=== PATIENT | male | born 1975 ===

== ENCOUNTER 2017-11-04 13:13 | Inpatient (IN) | payer OTHER ==
[~2017-11-04] VITALS: Ht 172.7 cm; Wt 81.3 kg
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
--- NOTE | 2017-11-04 16:24 | RADIOLOGY REPORT ---
EXAMINATION: XR WRIST, LEFT CLINICAL INFORMATION: Pain after hand, COMPARISON: None TECHNIQUE: 4 views total PA, lateral, and oblique views of the left wrist. In addition, a navicular view was obtained. FINDINGS: The bones and soft tissues are normal. No fracture. Alignment is anatomic with normal joint spaces. No erosions or abnormal soft tissue calcifications. IMPRESSION: Normal left wrist.
--- NOTE | 2017-11-04 16:25 | RADIOLOGY REPORT ---
EXAMINATION: XR WRIST, RIGHT CLINICAL INFORMATION: Pain status post handcuffs COMPARISON: None TECHNIQUE: 4 views total were obtained. PA, lateral, and oblique views of the right wrist as well as a navicular view. FINDINGS: The bones and soft tissues are normal. No fracture. Alignment is anatomic with normal joint spaces. No erosions or abnormal soft tissue calcifications. IMPRESSION: Normal right wrist.
[2017-11-04 16:37] LABS: ABSOLUTE BASOPHIL COUNT 0 /CUMM (0.0-0.2); ABSOLUTE EOSINOPHIL COUNT 0.1 /CUMM (0.0-0.7); ABSOLUTE GRANULOCYTE CT 5.4 /CUMM (1.4-6.5); ABSOLUTE LYMPH COUNT 1.2 /CUMM (1.2-3.4); ABSOLUTE MONOCYTE COUNT 0.6 /CUMM (0.10-0.60); BASOPHIL % 0.5 % (0.0-2.0); EOSINOPHIL % 0.7 % (0-5); GRANULOCYTE % 74.1 % (42.2-75.2); HEMATOCRIT 41.1 % (42-52); MEAN CORPUSCULAR HGB 28.6 PG (27.0-31.0); MEAN CORPUSCULAR HGB CONC 33.3 G/DL (33.0-37.0); MEAN PLATELET VOLUME 8.4 FL (7.4-10.4); PLATELET COUNT 251 /CUMM (130-400); RBC DISTRIBUTION WIDTH 14.4 % (11.5-14.5); RED BLOOD CELL CT 4.78 /CUMM (4.70-6.10); WHITE BLOOD CELL COUNT 7.3 /CUMM (4.8-10.8)
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
[2017-11-05 16:08] VITALS: BP 130/85
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
[2017-11-05 20:01] VITALS: BP 132/77
[2017-11-06 07:49] VITALS: BP 117/56
[2017-11-06 12:06] VITALS: BP 143/76
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
[2017-11-06 15:47] VITALS: BP 140/77
[2017-11-06 20:03] VITALS: BP 126/82
--- NOTE | 2017-11-07 01:26 | Event Note ---
Event Note Event Note: I was notifed by security that this patient's insisted on talking to a physician about patient's headache and need for MRI brain. This happened while I was dealing with a Rad[facility] transfer and ICU admits. I requested security to transfer the call to auto bumper mechanic and psychiatrist. I spoke with RN about the patient at that point. She stated he has no headache. He has left wrist pain - 3 /10 and he was not complaining, but was insisting on imaging. I asked RN to speak with patient's and explain that physician will evaluate patient later and decide on need for imaging. Plus we do not have MRI over the weekend, so if necessary we will get a CT scan in AM. I evaluated patient at 12.30 AM, he was sound asleep. He woke up and stated he has no headache, his vision is clear and he feels well. He offered no complaints. Vitals are stable. I suggested we re-evaluate patient in AM and decide on imaging if remains persistent. 's name is Yaya Choi and her number is [phone]. I did not give her a call as it was too late. We will re-evaluate in AM and decide need for imaging based on symptoms.
[2017-11-07 07:34] VITALS: BP 133/65
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
[2017-11-07 12:30] VITALS: BP 131/70
[2017-11-07 15:42] VITALS: BP 135/81
[2017-11-07 19:41] VITALS: BP 147/81
[2017-11-08 08:39] VITALS: BP 115/65
--- NOTE | 2017-11-08 09:14 | CP SOUTH PROGRESS NOTE PSYCH ---
Psych (Inpt) Progress Note Progress Note Vital Signs Date Time Temp Pulse B/P B/P Pulse O2 FiO2 11/08 0839 97.5 67 115/65 11/07 1941 96.7 65 147/81 11/07 1542 69 135/81 11/07 1230 60 131/70 MSE: The patient was alert and oriented to time, place, and person. He was well related today. He was not irritable or hostile. He showed good eye contact. His speech was normal, not pressured, and not slurred. He reported that his mood is starting to improve. He denied feeling hopeless or worthless and he denied wishing . He denied thoughts of suicide today. He denied any violent intentions or urges or thoughts and denied homicidal intentions or urges or thoughts. He was coherent, there was no thought disorder. There were no delusions during the interview. He denied hallucinations and did not seem to be experiencing any internal preoccupation or internal stimuli. Assessment: A 42 y/o man with suicidal thoughts with plan, admitted; guarded, angry and frustrated with being admitted here. Less angry and less intense compared to yesterday. Provided education about indications for brain imaging in addition to discussing medications. Did not focus on transfer to another hospital. Plan: CT Head Increase Seroquel to 300 mg at bedtime Reduce PRN Ativan to 0.5 mg Q 6 Hours PRN Increase PRN Gabapentin to 600 mg Q 6 hours
[2017-11-08 12:17] VITALS: BP 127/54
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
--- NOTE | 2017-11-08 14:42 | CT SCAN REPORT ---
EXAMINATION: CT HEAD WITHOUT CONTRAST CLINICAL INFORMATION: Concussion. Headaches. COMPARISON: None TECHNIQUE: Contiguous axial imaging was performed from the skull base to vertex without intravenous administration of contrast. DLP: 617.8 mGy-cm FINDINGS: There is no evidence of acute intracranial hemorrhage or territorial infarction. No abnormal mass effect or midline shift is seen. Ellis to white matter differentiation is well preserved. No extra-axial fluid collections are identified. The ventricles are normal in size. There is no abnormal attenuation within the brain parenchyma. The osseous structures are normal. The mastoid air cells and visualized portions of the paranasal sinuses are well aerated. There is nonspecific nodular soft tissue thickening in the subdermal and subcutaneous scalp soft tissues, mostly in the parietal-occipital regions. No bony erosive changes are seen. IMPRESSION: No acute intracranial pathology. Nonspecific diffuse nodular soft tissue thickening in the parietal and occipital scalp. Correlate with physical exam findings.
[2017-11-08 16:15] VITALS: BP 133/68
--- NOTE | 2017-11-08 16:59 | SOCIAL WORKER PROG NOTE PSYCH ---
Social Work Progress Note Progress Note The services requested require additional review. You will be contacted regarding the status of this request if further information is needed. An authorization decision will be made within the required timeframes and details of that decision may be found under the member's authorization history. Member Name Member ID Member Subscriber Name Subscriber ID TONIO CAIN [id number] TONIO CAIN [id number] Pended Authorization # Client Authorization # Type of Request [id number] CONCURRENT Date of Admission/ Start of Services Requested From Submission Date 11/05/2017 11/08/2017 11/08/2017 Level of Service Type of Service Level of Care Type of Care INPATIENT/HLOC [facility] - [facility]patient [facility] Reason Code P77 Provider Name & Address Provider ID Provider Alternate ID NPI # for Authorization MAGUI LAM [id number] [facility] [id number]
[2017-11-08 19:54] VITALS: BP 132/68
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
[2017-11-09 08:40] VITALS: BP 129/67
--- NOTE | 2017-11-09 11:22 | CP SOUTH PROGRESS NOTE PSYCH ---
Psych (Inpt) Progress Note Progress Note The treatment team reviewed the patient's the progress, treatment plan and aftercare plans and updated that. Treatment team included social work, nursing staff, therapy staff, and psychiatrist. Vital Signs Date Time Temp Pulse B/P B/P Pulse O2 FiO2 11/09 0840 96.4 71 129/67 11/08 1954 96.9 71 132/68 11/08 1615 65 133/68 11/08 1217 67 127/54 MSE: The patient was tearful most of the interview as well as in the family meeting. Alert and oriented to time, place, and person. He showed good eye contact. His speech was normal, not pressured, and not slurred. He reported that his mood is starting to improve. He denied feeling hopeless or worthless and he denied wishing . He denied thoughts of suicide today. He denied any violent intentions or urges or thoughts and denied homicidal intentions or urges or thoughts. He was coherent, there was no thought disorder. There were no delusions during the interview. He denied hallucinations and did not seem to be experiencing any internal preoccupation or internal stimuli. Assessment: A 42-year-old Black male who was admitted to the inpatient psychiatric unit at [facility] on 11/05/2017 with suicidal thoughts with plan, He has shown significant improvement over the relatively short period of time that he has been here and he did sign himself voluntarily and yesterday. He was initially admitted to the physician emergency certificate. The family meeting went well today he was perceived pretty tearful and overwhelmed but the reported that he feels that he wants to get out and start working on helping his and kids he does have an intake at [facility] [place] intensive outpatient program Plan: D/C PRN Gabapentin Use PRN Ativan for anxiety and sleep continue Seroquel 300 mg at bedtime Increase Prozac to 60 mg daily
[2017-11-09 12:00] VITALS: BP 121/58
[2017-11-09 16:11] VITALS: BP 130/70
[2017-11-09 19:51] VITALS: BP 120/64
[2017-11-10 07:54] VITALS: BP 124/57
[2017-11-10 12:23] VITALS: BP 140/68
--- NOTE | 2017-11-10 13:43 | SOCIAL WORKER PROG NOTE PSYCH ---
Social Work Progress Note Progress Note Jasson slept alot this morning. Met with him after lunch. He said he was in his room this morning taking space for himself. He is starting to feel a little overwhelmed by some of the other patients. He told me he thinks he will feel ready to d/c tomorrow. Affect is still flat/ constricted. Soft speech. He said he feels less violent/ aggressive, but waiting to see how the antidepressant helps him. I told him that can take weeks to feel the effects. He is eager to get back to working on school and looking for work so he can provide for his family. Denies any SI. Talked to his and told her he will come home tomorrow. She will most likely pick him up. Time to be determined. He will call her back to discuss. He feels he is stabilizing and getting ready to face the world again. Will need a letter for school.
--- NOTE | 2017-11-10 13:56 | CP SOUTH PROGRESS NOTE PSYCH ---
Psych (Inpt) Progress Note Progress Note The treatment team reviewed the patient's the progress, treatment plan and aftercare plans and updated that. Treatment team included social work, nursing staff, therapy staff, and psychiatrist. Vital Signs Date Time Temp Pulse B/P Pulse O2 FiO2 11/10 1223 72 140/68 11/10 0754 96.2 67 124/57 11/09 1951 96.8 62 120/64 11/09 1611 71 130/70 MSE: The patient was in bed most of the day. He said he did feel like dealing with people today. Alert and oriented to time, place, and person. He seemed down and withdrawn with reduced speech. He reported that he is leaving tomorrow around noon. He denied feeling hopeless or worthless and he denied wishing . He denied thoughts of suicide today. He denied any violent intentions or urges or thoughts and denied homicidal intentions or urges or thoughts. He was coherent, there was no thought disorder. There were no delusions during the interview. He denied hallucinations and did not seem to be experiencing any internal preoccupation or internal stimuli. Assessment: A 42-year-old Black male who was admitted to the inpatient psychiatric unit at [facility] on 11/05/2017 with suicidal thoughts. He has shown some improvement over the the past few days. The family meeting went well yesterday. Plan: REduce PRN Ativan for anxiety and sleep and combine with Gabapentin continue Seroquel 300 mg at bedtime Continue Prozac 60 mg daily Plan: D/C PRN Gabapentin Use PRN Ativan for anxiety and sleep continue Seroquel 300 mg at bedtime Increase Prozac to 60 mg daily
[2017-11-10 15:57] VITALS: BP 109/68
[2017-11-10 19:29] VITALS: BP 140/59
[2017-11-11 07:45] VITALS: BP 117/62
[2017-11-11] MEDS ORDERED: GABAPENTIN400 M2 PO (07:58)
[2017-11-11] MEDS ORDERED: QUETIAPINE FUM100 M1 PO (07:58)
[2017-11-11] MEDS ORDERED: ONE DAILY MULT1 EAC2 PO (07:58)
[2017-11-11] MEDS ORDERED: NICORELIEF2 MG PO (07:58)
[2017-11-11] MEDS ORDERED: VITAMIN D3400 UNI1 PO (07:58)
[2017-11-11] MEDS ORDERED: FLUOXETINE HCL20 M2 PO (07:58)
--- NOTE | 2017-11-11 07:59 | Patient Discharge Instructions ---
Psych Discharge Inst General Discharge Information Reason for Admission: thoughts of suicide Psy Discharge Primary Diag+ Unspecified Bipolar Psy Discharge Secondary Diag+ Cannabis Use Disorder Summary Tests/Major Procedures There were no significant abnormalities in the patient's laboratory testing. Studies Pending at DC: The patient's hep C and hep B profiles are pending as well as the hemoglobin A1c Patient Instructions Contact Information Your Psychiatrist on [facility] was Owen Mena MD * If you are experiencing an emergency related to this hospitalization, please call [phone] to contact the treating psychiatrist or the psychiatrist-on- call. * To Request a copy of your medical records, please contact the Medical Records Department at [phone]. * To request results of studies pending at the time of discharge, please call [phone]. * Continue your Medications until directed to stop by your Healthcare provider. General Medication Information Please continue to take your new medications and your continued home medications , unless otherwise indicated on your discharge medication list, or unless directed by your MD or CONFIGURATION MANAGEMENT ADVISOR to stop them. Special Instructions Diet Regular Activity Normal - Tobacco Use Treatment Offered Post DC Medications Offered: Script Given-See Med List Post DC Tobacco Treatment Plan: Other Tobacco Tx Pgm - EtOH/Drug Use D/O Treatment Offered Post DC Medications Offered: Med Not Indicated for D/O Post DC EtOH/SubAbuse TX Plan: Other SubAbuse/Dual Pgm Metabolic Screening Patient on a neuroleptic(s) . Enter below results for Hemoglobin A1C, and lipid panel if obtained during the last 365 days. BMI: 27.200 Blood Pressure: 117/62 Laboratory Results From [facility] (If applicable): Lab Cholesterol 199 MG/DL 11/04/17 1604 Cholesterol/HDL Ratio 3 % 11/04/17 1604 HDL Cholesterol 59 mg/dL 11/04/17 1604 Hemoglobin A1c Pending 11/11/17 0642 LDL Cholesterol, Calc 130 mg/dL H 11/04/17 1604 TSH &T3 &Free T4 Intrp 1.350 uIU/mL 11/04/17 1604 Triglycerides 53 mg/dL 11/04/17 1604 Advance Directives Does the Patient have Medical Advance Directives No/Refused further info Does Pt have Psychiatric Advance Directives? No/Refused further info Does Patient have a Designated Surrogate Decision Maker: Yes Information About Psychiatric Advance Directives Provided? Yes Discharge Plan Post Hospital Treatment Plan: [facility] Dual Diag Program
--- NOTE | 2017-11-11 08:23 | CP SOUTH PROGRESS NOTE PSYCH ---
Psych (Inpt) Progress Note Progress Note The treatment team reviewed the patient's the progress, treatment plan and aftercare plans and updated that. Treatment team included social work, nursing staff, therapy staff, and psychiatrist. Vital Signs Vital Signs Date Time Temp Pulse B/P B/P Pulse O2 FiO2 11/11 0745 96.7 79 117/62 11/10 1929 97.1 75 140/59 05 1557 75 109/68 11/10 1223 72 140/68 Mental status examination (07:50 hours): The patient was up and about before 8 AM, alert and oriented to time, place and person. Is still feeling depressed and anxious, but reported that's is feeling much better than the past couple days. Affect seemed down and withdrawn with reduced speech, but he reported that he is looking forward to discharge and taking care of what he needs to be taking care of on the outside. He reports that he intends to continue treatment with intensive outpatient program in [place]. He reported that his is picking him up around 2:00 this afternoon He denied feeling hopeless or worthless and he denied wishing . He denied thoughts of suicide today. He denied any violent intentions or urges or thoughts and denied homicidal intentions or urges or thoughts. He was coherent, there was no thought disorder. There were no delusions during the interview. He denied hallucinations and did not seem to be experiencing any internal preoccupation or internal stimuli. Assessment: A 42-year-old Black male who was admitted to the inpatient psychiatric unit at [facility] on 11/05/2017 with suicidal thoughts. Jasson showed improvement over the the past few days, no longer feeling hopeless, no longer thinking of suicide. Plan Update: D/C Home with F/U with [facility]
--- NOTE | 2017-11-11 08:25 | DISCHARGE SUMMARY REPORT-PSYCH ---
Visit Information Visit Dates/Diagnosis' Admission Date: 11/05/17 Discharge Date: 11/11/17 Reason for Admission: thoughts of suicide Psy Discharge Primary Diag: Unspecified Bipolar Psy Discharge Secondary Diag: Cannabis Use Disorder Hospital Course Significant Lab Findings: Laboratory Results From [facility] (If applicable): Lab Cholesterol 199 MG/DL 11/04/17 1604 Cholesterol/HDL Ratio 3 % 11/04/17 1604 HDL Cholesterol 59 mg/dL 11/04/17 1604 Hemoglobin A1c 5.5 % 11/11/17 0642 LDL Cholesterol, Calc 130 mg/dL H 11/04/17 1604 Triglycerides 53 mg/dL 11/04/17 1604 Lab Hct 41.1 % L 11/04/17 1613 Hgb 13.7 G/DL L 11/04/17 1613 Course Complications: The patient did not have any complications when he was on the inpatient psychiatric unit. Consultations: The patient had a history and physical examination while he was on the inpatient psychiatric unit. Please refer to the patient's electronic health record for details on the H&P. Allergies: Coded Allergies: No Known Allergies (11/04/17) Hospital Course/TX Response: 11/05/2017: Impression and Plan: 42-year-old black male who was admitted on a physician emergency certificate because he was contemplating suicide DSM 5 Diagnosis(es): Unspecified bipolar disorder Cannabis use disorder Treatment Plan: Inpatient psychiatric care with safety checks every 15 minutes Continue Prozac 40 mg every morning and Continue Seroquel 200 mg at bedtime Vitamin D 800 units daily Multivitamins once daily, As needed doses of Ativan for insomnia and as needed doses for anxiety and irritability/agitation 11/06/2017: Plan: continue current plan of care. Explained to him how the admission process works. He requested to be transferred to another hospital, explained to him that if he finds an accepting physician he is welcome to discuss further, that can ask us to provide # for another hospital, his will help him he stated. 11/07/2017: There were no changes made in the treatment plan or medications. CT Head Increase Seroquel to 300 mg at bedtime Reduce PRN Ativan to 0.5 mg Q 6 Hours PRN Increase PRN Gabapentin to 600 mg Q 6 hours 11/09/2017: D/C PRN Gabapentin Use PRN Ativan for anxiety and sleep continue Seroquel 300 mg at bedtime Increase Prozac to 60 mg daily 11/10/2017: Plan: Reduce PRN Ativan for anxiety and sleep and combine with Gabapentin continue Seroquel 300 mg at bedtime Continue Prozac 60 mg daily 11/11/2017: Mental status examination (07:50 AM): The patient was up and about before 8 AM, alert and oriented to time, place and person. Is still feeling depressed and anxious, but reported that's is feeling much better than the past couple days. Affect seemed down and withdrawn with reduced speech, but he reported that he is looking forward to discharge and taking care of what he needs to be taking care of on the outside. He reports that he intends to continue treatment with intensive outpatient program in [place]. He reported that his is picking him up around 2:00 this afternoon. He denied feeling hopeless or worthless and he denied wishing . He denied thoughts of suicide today. He denied any violent intentions or urges or thoughts and denied homicidal intentions or urges or thoughts. He was coherent, there was no thought disorder. There were no delusions during the interview. He denied hallucinations and did not seem to be experiencing any internal preoccupation or internal stimuli. Assessment: A 42-year-old Black male who was admitted to the inpatient psychiatric unit at [facility] on 11/05/2017 with suicidal thoughts. Jasson showed improvement over the the past few days, no longer feeling hopeless, no longer thinking of suicide. Plan Update: D/C Home with F/U with [facility] IOP Discharge HBIPS - Tobacco Use Treatment Offered Post DC Medications Offered: Script Given-See Med List Post DC Tobacco Treatment Plan: Other Tobacco Tx Pgm - EtOH/Drug Use D/O Treatment Offered Post DC Medications Offered: Med Not Indicated for D/O Post DC EtOH/SubAbuse [place] Plan: Other SubAbuse/Dual Pgm Metabolic Screening - Screen if on a Neuroleptic Medication - Metabolic screening should include: - Blood Pressure, BMI, Glucose or Hgb A1c, & a - Lipid profile from within the past 365 days. Metabolic Screening Patient on a neuroleptic(s) . Enter below results for Hemoglobin A1C, and lipid panel if obtained during the last 365 days. BMI: 27.200 Blood Pressure: 117/62 Laboratory Results From [facility] (If applicable): Lab Cholesterol 199 MG/DL 11/04/17 1604 Cholesterol/HDL Ratio 3 % 11/04/17 1604 HDL Cholesterol 59 mg/dL 11/04/17 1604 Hemoglobin A1c 5.5 % 11/11/17 0642 LDL Cholesterol, Calc 130 mg/dL H 11/04/17 1604 Triglycerides 53 mg/dL 11/04/17 1604 Discharge Instructions General Discharge Information Multiple Neuroleptics: ([X]) Not Applicable Discharge Diet Regular Discharge Activity Normal DC Disposition: Home Referrals Ordered Referrals Provider Referral 11/16/17 For Groups: [[facility] ] [facility] for mental health and substance use 11/16/17 10am [address] [facility], [place] [phone] Prescriptions Start taking the following new medications: Nicotine (Nicorelief) 2 MG GUM 2 Milligram ORAL EVERY 2 HOURS NEEDED as needed for nicotine cravings Qty = 90 No Refills Comments: Last Taken:11/10/17 Time:1800 Gabapentin (Gabapentin) 400 MG CAPSULE 400 Milligram ORAL EVERY SIX HOURS NEEDED as needed for ANXIETY/AGITATION /INSOMNIA Qty = 60 No Refills Comments: Last Taken:11/11/17 Time:45 Fluoxetine HCl (Fluoxetine HCl) 20 MG CAPSULE 60 Milligram ORAL DAILY @8 AM Qty = 50 No Refills Comments: Last Taken:11/11/17 Time:45 Quetiapine Fumarate (Quetiapine Fumarate) 100 MG TABLET 300 Milligram ORAL Every night Qty = 30 No Refills Comments: Last Taken:11/10/17 Time:2134 Cholecalciferol (Vitamin D3) (Vitamin D3) 400 UNIT TABLET 800 International Unit ORAL DAILY Qty = 30 No Refills Comments: Last Taken:11/11/17 Time:45 Multivitamin (One Daily Multivitamin) 1 EACH TABLET 1 Tablet ORAL DAILY Qty = 30 No Refills Comments: Last Taken:11/11/17 Time:45 Studies Pending at Discharge The patient's hep C and hep B profiles are pending as well as the hemoglobin A1c Copies To: [facility]
--- NOTE | 2017-11-11 08:40 | SOCIAL WORKER PROG NOTE PSYCH ---
Social Work Progress Note Progress Note Jasson reported he slept. Mood is okay today. Says he is happy about going home and seeing his family. His affect still remains flat and constricted. His will pick him up this afternoon. He feels his meds are right. He is going to try and work on staying away from marijuana. He says that will be hard for him, but he knows it causes some problems for him. Talked about pursuing goals of finishing school and finding employment. He knows he has a purpose in life and just needs to figure out what that is. Requested a letter with dates of hospitalization for school.
--- NOTE | 2017-11-11 11:44 | SOCIAL WORKER PROG NOTE PSYCH ---
Social Work Progress Note Faxed Referral(s) Referred To: [facility] Transition of Care Documents sent: Health Summary Faxed to: [facility] Fax #: [phone] Faxed by: Liza Bingham Date faxed: 11/11/17 Time Faxed: [phone]
== END 2017-11-11 12:15 | DRG 753 ==
LOC: ERH 13:13 → CP SOUTH 11-05 11:10 → ERHI 11-05 11:10 → ENTRNSPT 11-05 11:41 → ENRESERV 11-05 12:00 → CP SOUTH 11-05 12:02 → CMPTRNSPT 11-05 12:16 → CP SOUTH 11-05 12:18
PROVIDERS: Physician Assistant
DX: F31.9 Bipolar disorder, unspecified (principal); F12.90 Cannabis use, unspecified, uncomplicated
CPT/HCPCS: 36415; 73110-LT; 73110-RT; 80307; 87389; G0463; G0480; Q2036